=== PATIENT | male | born 1975 | race Caucasian/White ===

== ENCOUNTER 2019-08-11 08:50 | Emergency (ER) | payer SELFPAY ==
[~2019-08-11] VITALS: Ht 175.3 cm; Wt 96.0 kg
[2019-08-11 10:34] LABS: BASOPHILS % 0.9 % (0.0-2.0); EOSINOPHILS % 0.8 % (0.0-5.0); HEMATOCRIT. 41.2 % (42.0-52.0); HEMOGLOBIN. 13.4 g/dL (14.0-18.0); LYMPHOCYTES % 19.5 % (20.0-50.0); MEAN CORPUSCULAR HEMOGLOBIN 26.4 pg (28.0-32.0); MEAN PLATELET VOLUME 9.3 fl (7.4-10.4); MONOCYTES % 7.2 % (2.0-8.0); NEUTROPHILS % 71.6 % (40.0-76.0); PLATELET 250 x1000/uL (130-400); RED BLOOD CELL COUNT 5.08 mill/uL (4.7-6.1); RED CELL DISTRIBUTION WIDTH 14.3 % (11.6-14.6)
[2019-08-11 10:35] LABS: CHLORIDE 107 mEq/L (98-107)
[2019-08-11] MEDS ORDERED: FUROSEMIDE 20MG TABLET PO ONE (11:15)
[2019-08-11 11:35] VITALS: BP 178/132
== END 2019-08-11 11:47 | disposition home or self-care (01) ==
LOC: ER 08:50
DX: I11.0 Hypertensive heart disease with heart failure (principal); I50.9 Heart failure, unspecified; E78.00 Pure hypercholesterolemia, unspecified; Z98.890 Other specified postprocedural states; Z93.3 Colostomy status
CPT/HCPCS: 36415; 71045; 80053; 83880; 85025; 93005; 99285

== ENCOUNTER 2019-09-25 05:50 | Inpatient (IN) | payer MEDICAID, OTHER ==
[~2019-09-25] VITALS: Ht 167.6 cm; Wt 105.2 kg
[2019-09-25] MEDS ORDERED: FUROSEMIDE 40MG/4ML VIAL IV ONE (07:45)
[2019-09-25 08:22] LABS: BASOPHILS % 1.3 % (0.0-2.0); EOSINOPHILS % 3.1 % (0.0-5.0); HEMATOCRIT. 42.1 % (42.0-52.0); MEAN CORPUSCULAR HEMOGLOBIN 25.7 pg (28.0-32.0); MEAN CORPUSCULAR VOLUME 77.5 fL (80.0-94.0); MEAN PLATELET VOLUME 9.1 fl (7.4-10.4); MONOCYTES % 6.5 % (2.0-8.0); NEUTROPHILS % 71.1 % (40.0-76.0); PLATELET 241 x1000/uL (130-400); RED BLOOD CELL COUNT 5.44 mill/uL (4.7-6.1); RED CELL DISTRIBUTION WIDTH 15.5 % (11.6-14.6)
[2019-09-25 08:27] LABS: CHLORIDE 104 mEq/L (98-107)
[2019-09-25] MEDS ORDERED: CLONIDINE 0.1MG TABLET PO PRN (13:00)
[2019-09-25] MEDS ORDERED: ONDANSETRON HCL 4MG/2ML INJ IV PRN (13:00)
[2019-09-25] MEDS ORDERED: LORAZEPAM 0.5MG TABLET PO PRN (13:00)
[2019-09-25] MEDS ORDERED: ACETAMINOPHEN 325MG TABLET PO PRN ×2 (13:00)
[2019-09-25] MEDS ORDERED: ENOXAPARIN 40MG/0.4ML SYR SUBCUT SCH (13:00)
[2019-09-25] MEDS ORDERED: MAGNESIUM/ALUMINUM HYDROXIDE/SIMETHICONE 30ML UDC PO PRN (13:00)
[2019-09-25] MEDS ORDERED: GUAIFENESIN 200MG/10ML SUGAR FREE UDC PO PRN (13:00)
[2019-09-25] MEDS ORDERED: NITROGLYCERIN 0.4MG TABLET SL SL PRN (13:00)
[2019-09-25] MEDS ORDERED: KETOROLAC 15MG/ML VIAL IV PRN (13:00)
[2019-09-25] MEDS ORDERED: IPRATROPIUM/ALBUTEROL 0.5-3(2.5)MG/3ML NEB ORI PRN (13:00)
[2019-09-25] MEDS ORDERED: DOCUSATE SODIUM 100MG CAPSULE PO PRN (13:00)
[2019-09-25] MEDS ORDERED: IPRATROPIUM/ALBUTEROL 0.5-3(2.5)MG/3ML NEB HHN PRN (14:36)
[2019-09-25 15:12] LABS: LDL CHOLESTEROL 136 mg/dL (5-100)
[2019-09-25 15:13] LABS: CREATINE KINASE 160 IU/L (39-308)
[2019-09-25 15:14] LABS: CREATINE KINASE MB FRACTION 1.8 ng/mL (0.5-3.6); HDL CHOLESTEROL 40 mg/dL (40-59)
[2019-09-25] MEDS: GUAIFENESIN/DM 600MG/30MG ER TAB 12HR PO SCH (16:31)
[2019-09-25 16:36] VITALS: BP 157/89
[2019-09-25] MEDS ORDERED: POTA10CA42 MT (18:01)
[2019-09-25] MEDS ORDERED: FURO20TA4 MT (18:01)
[2019-09-25] MEDS: CARVEDILOL 3.125 MG TABLET PO SCH (18:26)
[2019-09-25] MEDS: FUROSEMIDE 40MG/4ML VIAL IVP SCH (18:28)
[2019-09-25 19:20] LABS: *AMPHETAMINES SCREEN URINE NEGATIVE (NEGATIVE); *BARBITURATES SCREEN URINE NEGATIVE (NEGATIVE); *BENZODIAZEPINES SCREEN URINE NEGATIVE (NEGATIVE); *COCAINE SCREEN URINE NEGATIVE (NEGATIVE)
[2019-09-25 19:21] LABS: CANNABINOID URINE SCREEN NEGATIVE (NEGATIVE); METHADONE URINE SCREEN NEGATIVE (NEGATIVE); OPIATES URINE SCREEN NEGATIVE (NEGATIVE); PHENCYCLIDINE URINE SCREEN NEGATIVE (NEGATIVE)
[2019-09-25 20:00] VITALS: BP 137/95
[2019-09-25] MEDS: FAMOTIDINE 20MG TABLET PO SCH (20:49)
[2019-09-25] MEDS: ASCORBIC ACID 500 MG TABLET PO SCH (20:49)
[2019-09-25] MEDS: ENOXAPARIN 30MG/0.3ML SYR SUBCUT SCH (20:50)
[2019-09-25] MEDS: LISINOPRIL 10MG TABLET PO SCH (20:50)
[2019-09-25] MEDS: SPIRONOLACTONE 25MG TABLET PO SCH (20:51)
[2019-09-25] MEDS ORDERED: ZOLPIDEM TARTRATE 5MG TABLET PO PRN (21:00)
[2019-09-26] VITALS: BP 125/91
[2019-09-26 00:23] LABS: CREATINE KINASE 139 IU/L (39-308)
[2019-09-26 00:24] LABS: CREATINE KINASE MB FRACTION 1.7 ng/mL (0.5-3.6)
[2019-09-26 04:00] VITALS: BP 117/84
[2019-09-26] MEDS: CARVEDILOL 3.125 MG TABLET PO SCH ×2 (05:29→17:21)
[2019-09-26] MEDS: GUAIFENESIN/DM 600MG/30MG ER TAB 12HR PO SCH ×2 (05:29→17:20)
[2019-09-26] MEDS: FUROSEMIDE 40MG/4ML VIAL IVP SCH ×2 (07:48→17:20)
[2019-09-26 08:00] VITALS: BP 131/94
[2019-09-26] MEDS: ASCORBIC ACID 500 MG TABLET PO SCH ×2 (09:36→21:16)
[2019-09-26] MEDS: LISINOPRIL 10MG TABLET PO SCH ×2 (09:36→21:16)
[2019-09-26] MEDS: FAMOTIDINE 20MG TABLET PO SCH ×2 (09:36→21:16)
[2019-09-26] MEDS: ENOXAPARIN 30MG/0.3ML SYR SUBCUT SCH ×2 (09:36→21:17)
[2019-09-26] MEDS: ZINC SULFATE 220 MG ( 50 ) CAPSULE PO SCH (09:36)
[2019-09-26] MEDS: SPIRONOLACTONE 25MG TABLET PO SCH ×2 (09:37→21:16)
[2019-09-26] MEDS: ASPIRIN 325MG EC TABLET PO SCH (09:37)
[2019-09-26 12:00] VITALS: BP 134/90
[2019-09-26 16:00] VITALS: BP 148/95
[2019-09-26 20:00] VITALS: BP 114/81
[2019-09-27] VITALS: BP 142/86
[2019-09-27 04:00] VITALS: BP 136/99
[2019-09-27] MEDS: CARVEDILOL 3.125 MG TABLET PO SCH ×2 (06:03→17:35)
[2019-09-27] MEDS: GUAIFENESIN/DM 600MG/30MG ER TAB 12HR PO SCH ×2 (06:03→17:35)
[2019-09-27] MEDS: FUROSEMIDE 40MG/4ML VIAL IVP SCH ×2 (06:29→17:24)
[2019-09-27 08:00] VITALS: BP 116/74
[2019-09-27] MEDS: ZINC SULFATE 220 MG ( 50 ) CAPSULE PO SCH (08:17)
[2019-09-27] MEDS: ASPIRIN 325MG EC TABLET PO SCH (08:17)
[2019-09-27] MEDS: FAMOTIDINE 20MG TABLET PO SCH ×2 (08:17→21:02)
[2019-09-27] MEDS: SPIRONOLACTONE 25MG TABLET PO SCH ×2 (08:18→21:02)
[2019-09-27] MEDS: ASCORBIC ACID 500 MG TABLET PO SCH ×2 (08:18→21:01)
[2019-09-27] MEDS: LISINOPRIL 10MG TABLET PO SCH ×2 (08:18→21:01)
[2019-09-27] MEDS: ENOXAPARIN 30MG/0.3ML SYR SUBCUT SCH ×2 (08:19→21:02)
[2019-09-27 12:00] VITALS: BP 123/84
[2019-09-27 16:00] VITALS: BP 136/99
[2019-09-27 19:31] VITALS: BP 117/85
[2019-09-28 00:27] VITALS: BP 126/75
[2019-09-28 04:29] VITALS: BP 113/76
[2019-09-28] MEDS: CARVEDILOL 3.125 MG TABLET PO SCH (06:41)
[2019-09-28] MEDS: FUROSEMIDE 40MG/4ML VIAL IVP SCH (06:41)
[2019-09-28] MEDS: GUAIFENESIN/DM 600MG/30MG ER TAB 12HR PO SCH (06:41)
[2019-09-28] MEDS ORDERED: FURO-151 MT (07:34)
[2019-09-28] MEDS ORDERED: SPIR25TA PO (07:34)
[2019-09-28] MEDS ORDERED: LISI10TA5 PO (07:34)
[2019-09-28] MEDS ORDERED: ASPI325T85 PO (07:34)
[2019-09-28] MEDS ORDERED: COR3 PO (07:34)
[2019-09-28 08:00] VITALS: BP 121/85
[2019-09-28] MEDS: ASPIRIN 325MG EC TABLET PO SCH (09:32)
[2019-09-28] MEDS: FAMOTIDINE 20MG TABLET PO SCH (09:32)
[2019-09-28] MEDS: ASCORBIC ACID 500 MG TABLET PO SCH (09:32)
[2019-09-28] MEDS: ZINC SULFATE 220 MG ( 50 ) CAPSULE PO SCH (09:33)
[2019-09-28] MEDS: LISINOPRIL 10MG TABLET PO SCH (09:33)
[2019-09-28] MEDS: ENOXAPARIN 30MG/0.3ML SYR SUBCUT SCH (09:33)
[2019-09-28] MEDS: SPIRONOLACTONE 25MG TABLET PO SCH (09:33)
[2019-09-28 10:47] VITALS: BP 121/85
== END 2019-09-28 12:30 | disposition home or self-care (01) | DRG 194 ==
LOC: ER 05:50 → 5WST 11:10 → EDBEDREQ 11:13 → ENRESERV 14:40
PROVIDERS: ADMIT Internal Medicine; ATTEND Internal Medicine
DX: I11.0 Hypertensive heart disease with heart failure (principal); J96.00 Acute respiratory failure, unspecified whether with hypoxia or hypercapnia; I50.43 Acute on chronic combined systolic (congestive) and diastolic (congestive) heart failure; E78.00 Pure hypercholesterolemia, unspecified; E78.5 Hyperlipidemia, unspecified; E83.51 Hypocalcemia; Z91.11 Patient's noncompliance with dietary regimen; Z91.14 Patient's other noncompliance with medication regimen; Z93.3 Colostomy status; Z79.899 Other long term (current) drug therapy
CPT/HCPCS: 36415; 71045; 80053; 80061; 80305; 80320; 82550; 82553; 83036; 83880; 84484; 85025; 93005; 93306; 93970; 99285; J1650; J1940; G0480